=== PATIENT | male | born 1955 | race Caucasian/White ===

== ENCOUNTER 2021-01-03 16:57 | Emergency (ER) | payer MEDICARE, SELFPAY ==
--- NOTE | ~2021-01-03 | XR_ITS ---
EXAMINATION: XR wrist LT min 3V DATE: 01/03/2021 17:27 INDICATION: Lateral left wrist pain 10 weeks post lifting heavy bags of sugar. TECHNIQUE: Posteroanterior, ulnar deviation, oblique, and lateral views of the left wrist were obtain ed. COMPARISON: none FINDINGS: Alignment is normal. No fracture. Minimal to mild polyarticular osteoarthritis at the left wrist, rad ial aspect of the carpus, first metacarpophalangeal and multiple interphalangeal joints. Mild soft ti ssue swelling along the radial aspect of the wrist. IMPRESSION: 1. 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 No acute osseous abnormalit y. Reviewed, dictated and finalized at location A. IMPRESSION: 1. 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 No ac nikolski osseous abnormality.
[2021-01-03 17:06] VITALS: BP 127/76; PULSE 64; RESP 16; TEMP 36.6; O2SAT 99
--- NOTE | 2021-01-03 18:06 | ED.LOWEXIN ---
HPI - Extremity Injury (Lower) General Chief Complaint: Extremity Injury, Upper Stated Complaint: left wrist pain Time Seen by Provider: 01/03/21 17:56 Source: patient and RN notes reviewed Mode of arrival: ambulatory Limitations: no limitations History of Present Illness HPI Narrative: Patient presents today complaining of left wrist pain x6 weeks. Reports that he was lifting a 50 pound bag of sugar at work and strained his wrist. He complains of pain primarily at the base of his thumb with occasional tingling in the second and third fingers. He describes a grating when he moves his thumb [id number]. He has been splinting, taking ibuprofen, and applying ice. Pain increases with movement and occasionally radiates to his elbow. MD complaint: other (Left wrist injury) Related Data Home Medications Medication Instructions Recorded Confirmed ergocalciferol (vitamin D2) 5,000 unit PO DAILY 01/03/21 01/03/21 [Vitamin D2] hydrocodone-acetaminophen 1 tablet PO Q6H PRN 01/03/21 01/03/21 prochlorperazine maleate 5 mg PO Q8H PRN 01/03/21 01/03/21 propranolol 10 mg PO Q12H 01/03/21 01/03/21 topiramate 25 mg PO DAILY 01/03/21 01/03/21 Allergies Allergy/AdvReac Type Severity Reaction Status Date / Time fentanyl Allergy Hallucinati Verified 01/03/21 17:16 ng Review of Systems Review of Systems: CONSTITUTIONAL: Denies body aches, fever, chills, or sweats. EYES: Denies visual changes, redness, or discharge. ENT: Denies rhinorrhea, congestion, sore throat, or otalgia. CARDIOVASCULAR: Denies chest pain, palpitations, or edema. RESPIRATORY: Denies cough or dyspnea. GASTROINTESTINAL: Denies abdominal pain, nausea, vomiting, or diarrhea. GENITOURINARY: Denies dysuria or hematuria. SKIN: Denies rash, itching, or wounds. MUSCULOSKELETAL: Denies back pain, or myalgia. + Left wrist injury NEUROLOGIC: Denies headache, numbness, tingling, or weakness. PSYCH: Denies depression or anxiety. [facility] Past Medical History Medical History (Updated 01/03/21 @ 18:14 by Grazyna Viveros, [facility], ) Bladder cancer Migraines Nasal polyps Surgical History Surgical History (Updated 01/03/21 @ 18:10 by Grazyna Viveros, [employer], ) H/O partial cystectomy Comments At time of signature, I have reviewed and agree with nursing past medical, surgical, social and family history unless otherwise noted. Please see nursing chart for further information. There is no relevant family history pertinent to the presenting complaint Exam Narrative: GENERAL: Well-appearing, well-nourished, and in no acute distress. HEAD: Normocephalic, atraumatic. EYES: EOMI. No redness or drainage. Conjunctivae normal. ENT: Mucous membranes pink and moist. NECK: Normal AROM. CHEST: No respiratory distress. EXTREMITIES: Left wrist: Tenderness to the thenar eminence, extending to the distal radius. Pain radiates to the elbow with palpation. Patient has full range of motion with slight increased pain. No edema noted. No ecchymosis or erythema noted. Distal sensation intact. Capillary refill normal. Radial pulse normal. SKIN: Warm, dry, no rash. Capillary refill normal. Normal skin turgor. NEURO: No focal deficits. Alert and oriented x3. Gait steady. PSYCH: Normal affect. No signs of depression or anxiety. Course Vital Signs Vital signs: Vital Signs Temperature 97.9 F 01/03/21 17:06 Pulse Rate 64 01/03/21 17:06 Respiratory Rate 16 01/03/21 17:06 Blood Pressure 127/76 01/03/21 17:06 Pulse Oximetry 99 01/03/21 17:06 Temperature 97.9 F 01/03/21 17:06 Pulse Rate 64 01/03/21 17:06 Respiratory Rate 16 01/03/21 17:06 Blood Pressure 127/76 01/03/21 17:06 Pulse Oximetry 99 01/03/21 17:06 Reviewed. Pt has been instructed to follow up with his PCP regarding his elevated blood pressure today. MDM - Extremity Injury (Lower) Differential Diagnosis Differential diagnosis: Likely other (Wrist sprain, fracture) Imaging
== END 2021-01-03 18:18 | disposition home or self-care (01) ==
PROVIDERS: Emergency Provider Nurse Practitioner; PCP Family Medicine
DX: S63.502A Unspecified sprain of left wrist, initial encounter (principal); Z79.891 Long term (current) use of opiate analgesic; X50.0XXA Overexertion from strenuous movement or load, initial encounter; Y99.0 Civilian activity done for income or pay
CPT/HCPCS: 73110; 99213; G0463

== ENCOUNTER 2021-08-03 11:00 | Emergency (ER) | payer MEDICARE, SELFPAY ==
[2021-08-03 11:10] VITALS: BP 123/90; PULSE 76; RESP 18; TEMP 36.7; O2SAT 99
--- NOTE | 2021-08-03 11:14 | ED.WOUNDLAC ---
HPI - Wound/Laceration General Chief Complaint: Wound/Laceration Stated Complaint: Puncture Wound Time Seen by Provider: 08/03/21 11:10 Source: patient and RN notes reviewed History of Present Illness HPI narrative: Patient is a 65-year-old male who presents the urgent care with complaints of a puncture wound to the left foot. Patient states that happened approximately 2 weeks ago after stepping on a toothpick. Patient has been using Prid, Tylenol and ibuprofen. Denies of any swelling but states that he has had increased tenderness to the area. Patient is not up-to-date on a tetanus shot. No other acute complaints. No acute distress noted. Patient aware of the plan of care. Some parts of this dictation were generated by voice recognition software and may contain typographical and/or grammatical inaccuracies. Related Data Home Medications Medication Instructions Recorded Confirmed ergocalciferol (vitamin D2) 5,000 unit PO DAILY 01/03/21 08/03/21 [Vitamin D2] hydrocodone-acetaminophen 1 tablet PO Q6H PRN 01/03/21 08/03/21 prochlorperazine maleate 5 mg PO Q8H PRN 01/03/21 08/03/21 propranolol 10 mg PO Q12H 01/03/21 08/03/21 topiramate 25 mg PO DAILY 01/03/21 08/03/21 Allergies Allergy/AdvReac Type Severity Reaction Status Date / Time fentanyl Allergy Hallucinati Verified 08/03/21 11:21 ng Review of Systems Review of Systems: CONSTITUTIONAL: Denies fever, chills, or sweats. EYES: Denies visual changes, redness, or discharge. ENT: Denies rhinorrhea, congestion, sore throat, or otalgia. CARDIOVASCULAR: Denies chest pain, palpitations, or edema. RESPIRATORY: Denies cough or dyspnea. GASTROINTESTINAL: Denies abdominal pain, nausea, vomiting, or diarrhea. GENITOURINARY: Denies dysuria or hematuria. SKIN: Reports of a puncture wound to the bottom of the left foot MUSCULOSKELETAL: Denies back pain, joint pain, or myalgia. NEUROLOGIC: Denies headache, numbness, or weakness. All other systems reviewed are negative, except as documented in HPI. [facility] Past Medical History Medical History (Updated 08/03/21 @ 11:33 by Grazyna E. Springman, [employer]) Bladder cancer Migraines Nasal polyps Surgical History Surgical History (Updated 01/03/21 @ 18:10 by Grazyna Viveros, [employer], ) H/O partial cystectomy Comments At the time of my signature, I reviewed and agree with the nursing past medical, surgical, social, and family history. There is no relevant family history pertinent to the patient complaint. Exam Narrative: GENERAL: This is a well-nourished, well-developed patient, in no apparent distress. HEAD: normocephalic, atraumatic. EYES: PERRL. Sclera clear/white. Vision is grossly intact. EARS: External ears normal NOSE: External nose normal with no obvious nasal discharge, nares without redness, no rhinorrhea. THROAT: Mucous membranes moist NECK: Neck supple SKIN: 0.5 cm blanched area to a pinpoint puncture wound to the bottom of the left foot, moderate tenderness, without surrounding erythema or edema (no obvious foreign body). Warm, intact with no suspicious lesions or rash, good texture and turgor. NEURO: awake, alert, and oriented to person, place and time. There were no obvious focal neurologic abnormalities. EXTREMITIES: No clubbing, cyanosis, or edema. Range of motion the left lower extremity within normal limits with positive strong left pedal pulse and capillary refill less than 2 seconds. Course Course Level of Care: Express Care Visit Vital Signs Vital signs: Vital Signs Temperature 98.1 F 08/03/21 11:10 Pulse Rate 76 08/03/21 11:10 Respiratory Rate 18 08/03/21 11:10 Blood Pressure 123/90 08/03/21 11:10 Pulse Oximetry 99 08/03/21 11:10 Temperature 98.1 F 08/03/21 11:10 Pulse Rate 76 08/03/21 11:10 Respiratory Rate 18 08/03/21 11:10 Blood Pressure 123/90 08/03/21 11:10 Pulse Oximetry 99 08/03/21 11:10 Reviewed MDM - Wound/Laceration MDM Narrative Medical decisio
[2021-08-03] MEDS: TETANUS,DIPHTHERIA,AC PERTUSSIS ADULT (0.5 ML) BOOSTRIX IM (11:20)
== END 2021-08-03 11:40 | disposition home or self-care (01) ==
PROVIDERS: Emergency Provider Nurse Practitioner Family; PCP Family Medicine
DX: S91.332A Puncture wound without foreign body, left foot, initial encounter (principal); W45.8XXA Other foreign body or object entering through skin, initial encounter; Z23 Encounter for immunization
CPT/HCPCS: 90471; 90715; 96372; 99213; G0463

== ENCOUNTER 2022-03-11 16:43 | Emergency (ER) | payer MEDICARE, SELFPAY ==
[2022-03-11 16:50] VITALS: BP 121/87; PULSE 71; RESP 16; TEMP 36.4; O2SAT 100
--- NOTE | 2022-03-11 19:05 | ED.URI ---
HPI - URI/Sore Throat General Chief Complaint: Upper Respiratory Infection Stated Complaint: cold/flu Time Seen by Provider: 03/11/22 19:05 Source: patient, RN notes reviewed and old records reviewed Mode of arrival: ambulatory Limitations: no limitations History of Present Illness HPI Narrative: 66-year-old male who presents to [facility] with complaints of cough, body aches, fevers, headache and some dizziness for the past 8 days. Patient reports that cough has increased, denies any acute shortness of breath. Patient reports that he had COVID and also COVID pneumonia did home COVID test on Sunday that was negative. Patient reports that he has taken Ibuprofen, Tylenol Theraflu, Tylenol cold and flu and also some Robitussin. Patient reports that he has not had influenza shot. MD elicited complaint: fever, cough and other (body aches, headaches and some dizziness) Pain scale (0-10): 6 Treatments prior to arrival: acetaminophen, ibuprofen, cold medicine and other (Robitussin) Related Data Home Medications Medication Instructions Recorded Confirmed meclizine 25 mg tablet 25 mg PO TID PRN Dizziness 03/11/22 03/11/22 Allergies Allergy/AdvReac Type Severity Reaction Status Date / Time fentanyl Allergy Intermediate Hallucinati Verified 03/11/22 17:56 ng Review of Systems Review of Systems: CONSTITUTIONAL: Reports malaise, chills, sweats, or fever. EYES: Denies visual changes, redness, or discharge. ENT: Reports rhinorrhea, congestion, sinus pain,no otalgia and sore throat. CARDIOVASCULAR: Denies chest pain, palpitations, or edema. RESPIRATORY: Reports cough.? Denies dyspnea. GASTROINTESTINAL: Denies abdominal pain, nausea, vomiting, diarrhea SKIN: Denies rash or itching. MUSCULOSKELETAL: Reports myalgia. NEUROLOGIC: Reports headache. All systems reviewed & are unremarkable except as noted in HPI and below PMFSH Past Medical History Medical History (Updated 03/12/22 @ 00:01 by Melanie Handy) Bladder cancer Migraines Nasal polyps Surgical History Surgical History (Updated 03/17/22 @ 07:44 by Patricia Molina NP) H/O elbow surgery H/O partial cystectomy Social History Social History (Updated 03/17/22 @ 07:45 by Patricia Molina NP) Smoking status: Former smoker Additional smoking assessment comments: quit 2009 Alcohol intake: unknown Substance use type: does not use Gender identity (if verbalized by the patient): Male Comments At time of signature, agree with nursing past medical, surgical, social and family history. There is no relevant family history pertinent to the presenting complaint Exam Narrative: GENERAL: Well-appearing, well-nourished, and in no acute distress. HEAD: Normocephalic EYES: PERRLA, conjunctivae clear ENT: Nares clear, turbinates edematous and erythematous, clear discharge. Mucous membranes moist. TM pearly grant with dull light reflex bilaterally; no tragal tenderness. Oropharynx erythematous without lesions. Tonsils not enlarged and without exudate, no drooling, no hoarseness, no trismus, uvula midline.some post nasal drainage noted. NECK: Supple. No lymphadenopathy CHEST: Clear to auscultation, breath sounds equal. No wheezing, rhonchi, rales, or stridor. No respiratory distress, speaks in full sentences.harsh cough with SAO2 100% on room air HEART: Regular rate and rhythm. No murmur heard. SKIN: Warm, dry, no rash. NEURO: Alert and oriented x3. PSYCH: Normal mood and affect Course Course Emergency Course: Patient is aware of diagnosis, understands and agrees to treatment plan.? Anticipatory guidance given.? Patient agrees to follow-up as directed and is aware of reasons to seek care at the emergency department. Portions of this record may have been created with voice recognition software Level of Care: Express Care Visit Vital Signs Vital signs: Vital Signs Temperature 36.4 C 03/11/22 16:50 Pulse Rate 71
== END 2022-03-11 19:20 | disposition home or self-care (01) ==
PROVIDERS: Emergency Provider Registered Nurse; PCP Family Medicine
DX: J06.9 Acute upper respiratory infection, unspecified (principal); Z87.891 Personal history of nicotine dependence
CPT/HCPCS: 87804; 99213; G0463